=== PATIENT | female | born 2005 | race Caucasian/White ===

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

== ENCOUNTER 2023-08-16 01:28 | Emergency (ER) | payer OTHER, SELFPAY ==
[2023-08-16 02:08] VITALS: BP 138/76; PULSE 72; RESP 18; TEMP 36.5; O2SAT 99; BMI 18.9
[2023-08-16 06:48] VITALS: BP 102/71; PULSE 62; RESP 16; TEMP 36.7; O2SAT 98
--- NOTE | 2023-08-16 08:11 | ED_ITS ---
HPI - Ear Problem General Chief complaint: Ear Problems Stated complaint: ear pain Time Seen by Provider: 08/16/23 08:01 Source: patient and RN notes reviewed Mode of arrival: ambulatory Limitations: no limitations History of Present Illness ED Provider: Sally Lam PA-C HPI Narrative: This is a 18-year-old female, with no known medical problems, who presents emergency department with complaints of left ear blockage x 2 days. Patient reports that 2 days ago she awoke and felt something stuck in her ear. She states that she went to a pharmacy where she purchased cerumen removal drops which she has been using without relief. She states that her symptoms have worsened, she does report pressure-like pain in her left ear. Denies any fevers. He has been taking ibuprofen at home some relief. History of cerumen impactions in the past. Reporting some clear your drainage. No other complaints or concerns at this time. MD Complaint: ear pain and decreased hearing Location: left ear Duration: constant Severity: moderate Relieving factors: nothing Exacerbating factors: nothing Discharge from ear: yes - clear Associated symptoms ear: decreased hearing Treatment prior to arrival: eardrops Related Data Allergies Allergy/AdvReac Type Severity Reaction Status Date / Time No Known Allergies Allergy Verified 08/16/23 02:12 [No Known Allergies*] Review of Systems Review of Systems: Yes all other systems are reviewed and are negative Constitutional: Constitutional: Reports as per [facility] Past Medical History Attestation statement: The following information was validated with the patient. Social History Social History Advance Directives: No Advance Directives Information Provided: No Do you have a plan to hurt others: No Plan Physical Exam Vital Signs: Vital Signs: Last Vital Signs Temp 98.0 F 08/16/23 06:48 Pulse 62 08/16/23 06:48 Resp 16 08/16/23 06:48 BP 102/71 08/16/23 06:48 Pulse Ox 98 08/16/23 06:48 O2 Del Method Room Air 08/16/23 06:48 BMI result Body Mass Index 18.9 Const: General: cooperative, comfortable and no acute distress Orientation/consciousness: patient oriented x3 Limitations: no limitations HEENT: Other: Left ear canal with moderate amount of cerumen, TM unable to be visualized. Once cerumen was removed, left TM does not appear to be erythematous or edematous. No mastoid tenderness. Right ear canal with minimal cerumen, TM nonerythematous, nonedematous. Head: Yes normal to inspection, Yes normocephalic and Yes atraumatic Ears: hearing grossly normal bilaterally General nose exam: Normal external nose present Face and sinus: Yes normal facial exam Mouth: Normal oral and palatal mucosa present, oropharynx normal and moist mucous membranes Throat: Yes posterior oropharynx normal Eyes: General: appearance normal, both eyes and all related structures Eyelids: Yes eyelids normal Conjunctivae: conjunctivae normal Sclerae: sclerae normal Pupils: Equal, round and reactive pupils present EOM: EOMs intact bilaterally Neck: Neck: Yes normal visual inspection, Yes full ROM and Yes no lymphadenopathy Lymphatic: no lymphadenopathy noted Chest: Chest palpation & inspection: normal inspection of the chest Resp: Effort & Inspection: normal respiratory effort and able to speak in complete sentences Auscultation: clear to auscultation bilaterally, no crackles, no rales, no rhonchi and no wheezes Cardio: Rate: regular rate Rhythm: regular rhythm Heart sounds: S1 normal heart sound present and S2 normal heart sound present GI: Inspection: Yes normal to inspection Skin: General skin exam: no rashes or lesions noted Trauma: no lacerations or abrasions Wounds: no wounds Neuro: General: patient oriented x3 and moves all extremities Cranial nerves: Yes Equal, round and reactive pupils present Extrem: General: Yes normal to inspection Right upper extremity: normal to inspection Left upper extremity: normal to inspection Right lower extremity: normal to inspection Left lower extremity: normal to inspection Course Reevaluation(s) Reevaluation #1: Moderate amount of cerumen was removed from left ear. See procedure note. Given return precautions. TM does not appear to be infected, stable for discharge. Time: 09:19 Medications Administered Discontinued Medications Generic Name Dose Route Start Last Admin Trade Name Gio PRN Reason Stop Dose Admin Docusate Sodium 100 mg 08/16/23 08:10 08/16/23 08:24 Docusate Sodium 100 Mg/10 Ml Liquid PO 08/16/23 08:11 100 mg ONCE ONE Administration Procedures Ear Wax Removal Left Ear: Cerumenolytic Used: Colace and 5-10% Sodium Bicarb solution Results: Re-examined: cerumen removed completely TM Examination: TM(s) intact, normal appearance Ear Canal Exam: atraumatic Patient Tolerated Procedure: well Complications: no problems Technique: ear canal irrigated Medical Decision Making Medical Decision Making MDM Narrative: This is a 18-year-old female who presents emergency department with complaints of left ear blockage x2 days. On arrival, vital signs within normal limits. Physical exam findings with cerumen impaction. Will irrigate ear. Differential diagnoses include cerumen impaction, otitis media otitis externa, foreign body, mastoiditis-unlikely Differential Diagnosis Differential Diagnoses: The differential diagnosis associated with the presentation includes See above Admission/Observation Consideration of admission/observation: Escalation of care including admission/observation considered Discharge Plan Discharge Clinical Impression: Impacted cerumen of left ear Patient Disposition: Home, Self-Care Additional Instructions: You were seen in the emergency department due to an impacted ear. We flushed your ear and were able to remove a moderate amount of cerumen from your left ear. Avoid Q-tip use. Watch for any new or worsening symptoms including but not limited to fevers, chills, worsening ear pain, please return for re-evaluation. Print Language: Macedonian
[2023-08-16] MEDS: Docusate Sodium 100 MG/10 ML LIQUID PO (08:24)
[2023-08-16 09:29] VITALS: BP 108/73; PULSE 64; RESP 16; TEMP 36.7; O2SAT 98
== END 2023-08-16 09:29 | disposition home or self-care (01) ==
PROVIDERS: Emergency Provider Emergency Medicine; PCP Specialist
DX: H92.02 Otalgia, left ear (principal); H61.22 Impacted cerumen, left ear
CPT/HCPCS: 69209; 99282; 99283